=== PATIENT | female | born 1985 | race Caucasian/White ===

== ENCOUNTER 2020-05-02 05:34 | Observation (INO) | payer BC ==
[2020-04-25 12:05] LABS: CLARITY,URINE CLOUDY (Clear); COLOR,URINE STRAW (Yellow); GLUCOSE, URINE NEGATIVE (Neg); KETONES,URINE NEGATIVE (Neg); LEUKOCYTE ESTERASE ,URINE TRACE (Neg); NITRITES, URINE POSITIVE (Neg); OCCULT BLOOD,URINE TRACE-INTACT (Neg); PH,URINE 5.5 (4.8-8.0); PROTEIN,URINE NEGATIVE (Neg); UROBILINOGEN,URINE 0.2 E.U/dL (0.2-1.0)
[2020-04-25 12:07] LABS: UA COLLECTION TYPE CLN CATCH MIDSTREAM
[2020-04-25 12:09] LABS: BASOPHILS % (AUTO) 0.7 % (0-1); LYMPHOCYTES # (AUTO) 1.7 X10'3 (1.1-4.8); LYMPHOCYTES % (AUTO) 41.2 % (21-51); MEAN CORPUSCULAR HEMOGLOBIN 30.6 PG (27.0-31.0); MEAN CORPUSCULAR HGB CONC 33.9 g/dL (33.0-36.5); MEAN CORPUSCULAR VOLUME 90.4 FL (78-98); MEAN PLATELET VOLUME 8.1 FL (7.4-10.4); MONOCYTES # (AUTO) 0.3 X10'3 (0-0.9); MONOCYTES % (AUTO) 8.3 % (2-12); NEUTROPHILS % (AUTO) 48.8 % (42-75); PRE OP HEMATOCRIT 42.9 % (35.0-45.0); PRE OP HEMOGLOBIN 14.5 g/dL (12.0-16.0); PRE OP PLATELET COUNT 181 X10'3 (140-440); RED BLOOD COUNT 4.75 X10'6 (4.20-5.60); RED CELL DISTRIBUTION WIDTH 12.8 % (11.5-14.5)
[2020-04-25 12:12] LABS: MUCUS STRANDS MANY /LPF (Neg); SQUAMOUS EPITHELIAL CELL,UR MODERATE /LPF (FEW)
[2020-04-25 12:14] LABS: BACTERIA,URINE 4+ /HPF (Neg); RBC,URINE 0-2 /HPF (0-2)
[2020-04-25 12:30] LABS: ALBUMIN 3.8 G/DL (3.4-5.0); ALBUMIN/GLOBULIN RATIO 1.2 (1.1-1.5); ALKALINE PHOSPHATASE 50 IU/L (46-116); BLOOD UREA NITROGEN 13 MG/DL (7-18); BUN/CREATININE RATIO 15.1 (6.6-38.0); CALCIUM 8.8 MG/DL (8.5-10.1); CHLORIDE 107 MMOL/L (99-107); CREATININE 0.86 MG/DL (0.40-0.90); PRE OP ALT 23 U/L (30-65); PRE OP ANION GAP 7 (8-16); PRE OP AST 26 U/L (10-37); PRE OP BILIRUB, TOTAL 0.5 MG/DL (0.0-1.0); PRE OP GLUCOSE 91 MG/DL (70-104); PRE OP SODIUM 142 MMOL/L (135-145); TOTAL CARBON DIOXIDE 28.1 MMOL/L (24-32); TOTAL PROTEIN 7.1 G/DL (6.4-8.2); eGFR 75 ML/MIN
[2020-04-25 12:54] LABS: HCG SERUM QL NEGATIVE
[~2020-05-02] VITALS: Ht 157.5 cm; Wt 60.0 kg
[2020-05-02] VITALS (16 sets, daily range): BP systolic 94–109; BP diastolic 60–75
[~2020-05-02 05:34] MED LIST: NO HOME MEDS; ceFOXitin 2GM-NS 100mL ADDvant 100 ML IV ONE; ceFOXitin sod/dextrose 2g/50ml 50 ML IV ONE; famotidine 20mg tablet PO ONE; ringers solution, lacted 1,000 ML IV SCH
[2020-05-02] MEDS ORDERED: LIDOcaine 1% (10mg/ml) 2ml vial ONE (05:55)
[2020-05-02] MEDS ORDERED: clindamycin phosphate 40gm vag cream ONE (06:52)
[2020-05-02] MEDS ORDERED: vasoPRESSIN 20 units/ml inj. ONE (06:52)
[2020-05-02] MEDS ORDERED: neomy sulf/polymyxin B sulf. GU irrigation 1ml amp IR ONE (06:52)
[2020-05-02] MEDS ORDERED: epiNEPHrine 1 mg/ml inj ONE (06:52)
[2020-05-02] MEDS ORDERED: scopolamine 1.5mg patch.TD72 TD ONE (07:18)
[2020-05-02] MEDS ORDERED: rocuronium 10mg/ml inj IV ONE (07:27)
[2020-05-02] MEDS ORDERED: propofol inj 20 ML IV ONE (07:27)
[2020-05-02] MEDS ORDERED: midazolam 2 mg/2 ml injection ONE (07:27)
[2020-05-02] MEDS ORDERED: fentaNYL/PF 50MCG/1 ML 2ML syringe ONE (07:27)
[2020-05-02] MEDS ORDERED: sevoflurane 250ml liquid IH ONE (07:31)
[2020-05-02] MEDS ORDERED: ondansetron/PF 4mg/2ml inj ONE (07:48)
[2020-05-02] MEDS ORDERED: dexamethasone sod phosphate 4mg/ml inj. ONE (07:49)
[2020-05-02] MEDS: BUPIVAcaine/PF 2.5 mg/ml (0.25%) 30ml vial ONE ×2 (08:16→08:17)
[2020-05-02] MEDS ORDERED: ringers solution, lacted 1,000 ML IV SCH (08:19)
[2020-05-02] MEDS ORDERED: meperidine/PF 25mg/ml syringe IV PRN ×3 (08:20)
[2020-05-02] MEDS ORDERED: ondansetron/PF 4mg/2ml inj IV PRN ×2 (08:20→09:45)
[2020-05-02] MEDS ORDERED: proCHLORperazine 10 MG/2 ml inj IV PRN (08:20)
[2020-05-02] MEDS ORDERED: morphine 4 MG/ML inj SYRINge IV PRN (08:20)
[2020-05-02] MEDS ORDERED: morphine 2 MG/ML inj. syringe IV PRN (08:20)
[2020-05-02] MEDS ORDERED: acetaminophen 1,000mg/100ml IV 100 ML IV ONE (08:59)
[2020-05-02] MEDS ORDERED: neostigmine methylsulfate 1 MG/ML 10ml vial ONE (09:29)
[2020-05-02] MEDS ORDERED: glycopyrrolate 0.2mg/ml inj ONE (09:29)
[2020-05-02] MEDS ORDERED: fluoroscein sod 10% (100mg/ml) 5ml vial ONE (09:29)
[2020-05-02] MEDS ORDERED: diphenhydrAMINE 50 mg/ml inj IV PRN (09:45)
[2020-05-02] MEDS ORDERED: temazepam 15mg capsule PO PRN (09:45)
[2020-05-02] MEDS ORDERED: magnesium hydroxide 30ml (MOM) UD suspension PO PRN (09:45)
[2020-05-02] MEDS ORDERED: LORazepam 2 mg/ml vial IV PRN (09:45)
[2020-05-02] MEDS ORDERED: HYDROcodone/acetaminophen 10/325mg tab PO PRN (09:45)
[2020-05-02] MEDS ORDERED: normal saline 500ml IV soln 500 ML IV PRN (09:45)
[2020-05-02] MEDS ORDERED: LORazepam 1 MG tablet PO PRN (09:45)
[2020-05-02] MEDS ORDERED: metoclopramide 5 mg/ml inj IV PRN (09:45)
--- NOTE | 2020-05-02 09:52 | NUR ---
Received from OR via [facility] , accompanied by Anesthesiologist CRISTIAN and report given by Anesthesiolgist. PATIENT WITH 20G PIV IN RIGHT UE RUNNING LR AT 100. DENIES PAIN. 3 LAP SITES PRESENT AND ARE CDI. VSS. GUCCI PAD IN PLACE WELL CHARLES CATHETER WITH FLOUROSINE COLORED URINE. 10L MASK ON WITH 100% SATURATIONS. ANUJ CARRION FOR 35.9C TEMP. WILL CONTINUE TO ASSESS. Addendum: 05/02/20 at 1004 by Neel Alanis RN, RN Amended: Links added.
--- NOTE | 2020-05-02 10:51 | NUR ---
I have received report from PATSY Shaikh and had the opportunity to ask questions and assume patient care.
--- NOTE | 2020-05-02 10:52 | NUR ---
ALL CRITERIA FOR DC TO THE FLOOR HAS BEEN ACHIEVED. 2 RAILS UP. BED LOW, CALL LIGHT PRESENT. GAVE REPORT TO RN . PAIN AT A TOLERABLE LEVEL AT THIS TIME. DRESSINGS CDI TO ABDOMEN. CARE TURNED OVER TO RN. CHARLES CATHETER WITH FLOUROSINE DYE IN CHARLES WITH URINE PRESENT. Addendum: 05/02/20 at 1114 by Neel Benito - PATSY RN Amended: Links added.
--- NOTE | 2020-05-02 10:55 | NUR ---
Pt arrived to surgical floor via hospital bed. Call patel placed within reach, bed low and locked. Post operative VS started. Will continue to monitor.
[2020-05-02] MEDS: ketorolac trometh. 30mg/ml inj. IV PRN ×2 (12:30→22:57)
[2020-05-02] MEDS: ringers solution, lacted 1,000 ML IV SCH ×2 (15:23→23:27)
[2020-05-02] MEDS: HYDROcodone/acetaminophen 10/325mg tab PO PRN ×2 (15:38→22:24)
[2020-05-02] MEDS: ceFAZolin 1GM/D5W- ADD-VANTAGE 50 ML IV SCH (16:57)
--- NOTE | 2020-05-02 18:32 | NUR ---
Problems reprioritized. Patient report given, questions answered & plan of care reviewed with Sujey Gomez RN.
--- NOTE | 2020-05-02 18:33 | NUR ---
Patient in room [id number]. I have received report from PATSY Diaz and had the opportunity to ask questions and assume patient care. Addendum: 05/02/20 at 1833 by Susannah Gaffney RN Amended: Links added.
[2020-05-02] MEDS: docusate sod 100mg capsule PO SCH (21:17)
[2020-05-03] VITALS: BP 97/57
[2020-05-03] MEDS: ceFAZolin 1GM/D5W- ADD-VANTAGE 50 ML IV SCH ×2 (00:13→08:54)
[2020-05-03] MEDS: ringers solution, lacted 1,000 ML IV SCH ×2 (00:15→09:41)
[2020-05-03 05:19] LABS: BASOPHILS % (AUTO) 0.3 % (0-1); EOSINOPHILS % (AUTO) 0.1 % (0-6); HEMATOCRIT 36.6 % (35.0-45.0); HEMOGLOBIN 12.5 g/dl (12.0-16.0); LYMPHOCYTES # (AUTO) 1.7 X10'3 (1.1-4.8); LYMPHOCYTES % (AUTO) 23.7 % (21-51); MEAN CORPUSCULAR HGB CONC 34.1 g/dL (33.0-36.5); MEAN CORPUSCULAR VOLUME 90.8 FL (78-98); MEAN PLATELET VOLUME 8.4 FL (7.4-10.4); MONOCYTES # (AUTO) 0.5 X10'3 (0-0.9); NEUTROPHILS % (AUTO) 68.9 % (42-75); PLATELET COUNT 158 X10'3 (140-440); RED BLOOD COUNT 4.03 X10'6 (4.20-5.60); RED CELL DISTRIBUTION WIDTH 12.5 % (11.5-14.5); WHITE BLOOD COUNT 7.3 X10'3 (4.5-11.0)
[2020-05-03 05:35] LABS: ALBUMIN 2.7 G/DL (3.4-5.0); ANION GAP 7 (8-16); BLOOD UREA NITROGEN 7 MG/DL (7-18); BUN/CREATININE RATIO 7.5 (6.6-38.0); CALCIUM 7.9 MG/DL (8.5-10.1); CHLORIDE 110 MMOL/L (99-107); CREATININE 0.93 MG/DL (0.40-0.90); GLUCOSE 99 MG/DL (70-104); POTASSIUM 3.7 MMOL/L (3.5-5.1); SODIUM 142 MMOL/L (135-145); eGFR 69 ML/MIN
--- NOTE | 2020-05-03 06:34 | NUR ---
Problems reprioritized. Patient report given, questions answered & plan of care reviewed with PATSY Craig.
[2020-05-03 07:00] VITALS: BP 103/67
[2020-05-03 07:30] VITALS: BP 103/67
[2020-05-03] MEDS ORDERED: enoxaparin 40mg/0.4ml syringe SQ SCH (08:00)
[2020-05-03] MEDS: docusate sod 100mg capsule PO SCH (08:54)
[2020-05-03 11:00] VITALS: BP 90/54
[2020-05-03] MEDS: HYDROcodone/acetaminophen 10/325mg tab PO PRN (11:29)
[2020-05-03 12:00] VITALS: BP 90/54
[2020-05-03 12:04] VITALS: BP 110/64
--- NOTE | 2020-05-03 12:14 | NUR ---
PT. DISCHARGED IN A STABLE CONDITION. C/O ABD PAIN, BUT HAS SCANT BLEEDING. WRITTEN [employer] FOUND IN PT'S HOME PACKET FROM EDUARD'S OFFICE. POST-OP CARE PACKET EDUCATION FOR [facility] PROVIDED TO PT. WHO READ IT AND GAVE GOOD VERBAL FEEDBACK. KNOWS TO NOT TAKE BATHS, LIFT WEIGHTS, AND TO REPORT S/SX INFECTION. PT. IV DC'D , NO S/SX BLEEDING NOTED. ARRIVED TO PICK PT. UP. PT. LEFT ESCORTED BY STAFF VIA W/C TO GO HOME. TOOK ALL OF HER BELONGINGS.
== END 2020-05-03 12:07 | disposition home or self-care (01) ==
LOC: PAS 05:34 → SUR 3N 09:41 → PAS 12:29 → SUR 3N 12:29
PROVIDERS: ADMIT Obstetrics & Gynecology Obstetrics; ATTEND Obstetrics & Gynecology Obstetrics
DX: Z03.818 Encounter for observation for suspected exposure to other biological agents ruled out (principal); D25.9 Leiomyoma of uterus, unspecified
CPT/HCPCS: 36415; 58554; 71046; 80048; 80053; 81001; 82948; 84443; 84703; 85025; 86885; 86900; 86901; 87077; 87081; 87088; 87186; 93005; 96365; 96366; 96372; 96375; 96376; G0378; J0131; J0171; J0690; J0694; J1100; J1885; J2001; J2175; J2250; J2405; J2704; J2710; J3010; J3490; J7120; U0003; A4314; A4355; A4618; A7000; J1650